=== PATIENT | male | born 1935 | race Caucasian/White ===

== ENCOUNTER → 2017-02-01 | Outpatient (REF) ==
[~2017-02-01] MED LIST: ACIDOPHILUS PO; ALBUTEROL0.09 MG/A1 IH; ALMACONE 360 M360 ML PO; AMITRIPTYLINE H50 M1 PO; AMITRIPTYLINE50 MG PO; AMPICILLIN500 MG PO; BACTRIM DS 8001 TAB PO; CEPHALEXIN500 M1 PO; CLEOCIN; CORDARONE200 MG/TAB PO; DIFLUCAN; DULCOLAX10 MG RC; FENTANYL 25 MCG TP; FERRATE325 MG PO; GENTLE LAXATIVE10 MG RC; LEVAQUIN 250MG250 MG PO; LEVAQUIN 5500 MG/TAB PO; MAALOX PLUS / M30 ML PO; MILK OF MA400 MG/5 M PO; MIRALAX17 GM/DOSE PO; MULTAQ400 MG PO; MULTIPLE VITAMI1 CAP PO; MULTIPLE VITAMI1 TA5 PO; MYLANTA 150 ML150 M1 PO; NEURONTIN300 MG PO; NEURONTIN300 MG/CAP PO; PAXIL 20MG20 MG PO; PEPCID 20MG TAB20 MG PO; PEPCID AC20 M1 PO; PEPCID AC20 MG PO; PERCOCET 325 MG1 TA2 PO; PHENERGAN25 MG RC; PRADAXA75 MG PO; PRILOSEC40 MG PO; ROXANOL20 MG/ML PO; SYNTHROID0.05 MG/TA PO; TYLENOL 325MG325 MG PO; TYLENOL 500MG500 MG PO; XARELTO10 MG PO; [UNRECOGNIZED DRUG - OTHER] PO; [UNRECOGNIZED DRUG - OTHER] PO; bactrim
== END ==
LOC: ZLAB.WCH 08:55
DX: Z01.89 Encounter for other specified special examinations (principal)

== ENCOUNTER → 2018-08-30 | Outpatient (REF) | LOC: ZLAB.WCH 09:42 | DX: Z01.89 Encounter for other specified special examinations (principal) ==

== ENCOUNTER 2021-03-24 16:56 | Inpatient (IN) | payer MEDICARE, OTHER ==
[~2021-03-24] VITALS: Ht 175.3 cm; Wt 58.2 kg
[~2021-03-24 16:56] MED LIST changes: -ASPIRIN 81M81 MG/TA2 PO; -ASPIRIN E.C. 8181 MG PO; -ATIVAN 0.50.5 MG/TAB PO; -BENADRYL25 M2 PO; -CIPRO 500MG TA500 MG PO; -COLACE 100100 MG/CAP PO; -DIGITEK0.25 MG PO; -DOXYCYCLINE HY100 MG PO; -FLAGYL500 MG PO; -LANOXIN 0.120.125 MG PO; -LIPITOR 40MG TA40 MG PO; -MAG-OX 400400 MG/TAB PO; -MIRALAX PA17 GM/Dose PO; -NEURONTIN100 MG/CAP PO; -NORCO 325 MG-51 TAB PO; -ROXANOL 20MG20 MG/ML SL; -TUSSIN DM CLEA120 ML PO; -ZOFRAN 4MG T4 MG/TAB PO; -ZOFRAN ODT4 MG PO
[2021-03-24 18:19] VITALS: BP 92/70; PULSE 107; TEMP 97.2
--- NOTE | 2021-03-24 18:30 | NUR ---
PT ARRIVED TO FLOOR, VERY WIYOT, PAPER AND PEN USED TO COMMUNICATE, PT DENIES CHEST PAIN OR SOB, PACER INTERROGATED, VITALS TAKEN AND RECORDED, TOLD RICHAR MACIEL PT WAS HERE, CALLED RT FOR EKG
--- NOTE | 2021-03-24 19:15 | NUR ---
Received report from Kary. Patient awake on bed. He is hard of hearing. Venegas catheter draining madisyn urine.
[2021-03-24] MEDS ORDERED: ASPIRIN 81M81 MG/TA2 PO (19:42)
[2021-03-24] MEDS ORDERED: LIPITOR 40MG TA40 MG PO (19:42)
[2021-03-24] MEDS ORDERED: BENADRYL25 M2 PO (19:42)
[2021-03-24] MEDS ORDERED: CIPRO 500MG TA500 MG PO (19:43)
[2021-03-24] MEDS ORDERED: LANOXIN 0.120.125 MG PO (19:44)
[2021-03-24] MEDS ORDERED: TUSSIN DM CLEA120 ML PO (19:45)
[2021-03-24] MEDS ORDERED: FLAGYL500 MG PO (19:45)
[2021-03-24 19:46] VITALS: BP 94/64; PULSE 115; TEMP 97.6
[2021-03-24] MEDS ORDERED: ZOFRAN 4MG T4 MG/TAB PO (19:46)
[2021-03-24] MEDS ORDERED: NEURONTIN100 MG/CAP PO (19:48)
--- NOTE | 2021-03-24 20:10 | NUR ---
Patient's DPOA, Ibrahima, came in to give the DPOA form. Informed Xochitl MACIEL so she can update Ibrahima for the plan of care. Placed walker inside his room. Clipboard and paper was on the bedside for communication purposes. Changed his gown to yellow and placed him on high fall risk. His abdomen is distended with wound covered with gauze.
[2021-03-24 21:25] LABS: COLLECTION METHOD CATHETER
[2021-03-24 21:58] LABS: PH 5 (5-8); SQUAMOUS EPITHELIAL None Seen /hpf; URINE APPEARANCE Cloudy; URINE BACTERIA Many /hpf; URINE BILIRUBIN Negative (NEGATIVE); URINE BLOOD 3+ (NEGATIVE); URINE COLOR Amber; URINE GLUCOSE Negative (NEGATIVE); URINE KETONE Trace (NEGATIVE); URINE LEUKOCYTE ESTERASE 1+ (NEGATIVE); URINE NITRATE Negative (NEGATIVE); URINE PROTEIN(semi-quant) 2+ (NEGATIVE); URINE RBC >50 /hpf; URINE UROBILINOGEN Negative (NEGATIVE)
[2021-03-24 23:10] VITALS: BP 87/61; PULSE 107; TEMP 98
[2021-03-24 23:12] VITALS: BP 96/69; PULSE 115
--- NOTE | 2021-03-25 01:18 | NUR ---
Relayed elevated Troponin to Xochitl MACIEL via phone call. Patient denies chest pain. Informed her as well that patient's urine on IFC was a bit bloody. UA result from [facility] shows RBC and Blood as well. She ordered NS at 60ml/hr and have patient on NPO and for echo.
--- NOTE | 2021-03-25 03:06 | NUR ---
Vancomycin Initial Dosing Pharmacy Note Ordering provider: Nino Gandhi MD Indication/duration: Empiric possible UTI and complicated GI hx including MRSA. Relevant comorbidities: HTN, Hx MRSA. LABS: (Outside labs) WBC = 8.3, SCr = 0.9 Recommendation: Will draw troughs and follow levels. Loading dose: 1 grams Maintenance dose: 500 mg every 12 hours Trough goal: 15-20 ug/mL
[2021-03-25 03:24] VITALS: BP 94/62; PULSE 109; TEMP 98.8
--- NOTE | 2021-03-25 05:55 | NUR ---
Patient's troponin continued to trend. He denies chest pain. Venegas catheter draining bloody urine.
[2021-03-25 07:23] LABS: BASO % 0.1 % (0.0-2.0); GRAN # 7.7 (1.4-6.5); GRAN % 79.8 % (42.2-75.2); LYMPH # 1.1 (1.2-3.4); LYMPH % 11.2 % (20.0-51.0); MEAN CELL VOLUME 90 fl (80.0-100.0); MEAN CORPUSCULAR HEMOGLOBIN 28 pg (27.0-31.0); MEAN CORPUSCULAR HGB CONC 31 g/dl (33.0-37.0); MEAN PLATELET VOLUME 10.1 fl (7.4-10.4); MONO # 0.8 (0.1-0.6); MONO % 8.4 % (1.7-9.3); PLATELET COUNT 213 K/mm3 (130-400); RED BLOOD COUNT 3.59 M/mm3 (4.20-5.60); REDCELL DISTRIBUTION WIDTH-CV 16.1 % (11.5-14.5)
[2021-03-25 07:24] LABS: HEMATOCRIT 32.2 % (42.0-52.0)
[2021-03-25 07:30] LABS: ALBUMIN 3.2 gm/dL (3.5-5.0); BILIRUBIN,TOTAL 0.5 mg/dL (0.0-1.0); CALCIUM 8.9 mg/dL (8.4-10.2); CREATININE, serum 0.81 (0.66-1.25); POTASSIUM 3.5 mmol/L (3.4-5.0); TOTAL PROTEIN 6.3 gm/dL (6.4-8.2)
[2021-03-25 07:44] LABS: TROPONIN-I 5.73 ng/mL (0.000-0.035)
[2021-03-25 08:06] VITALS: BP 107/73; PULSE 109; TEMP 98.2
--- NOTE | 2021-03-25 08:17 | NUR ---
NOTIFIED ADAM MACIEL OF CRITICAL TROPONIN LEVEL
--- NOTE | 2021-03-25 08:55 | NUR ---
AFTER PT PUT BACK IN BED AFTER CT IV STARTED TO LEAK, STOPPED USING SITE. 3 NURSES ATTEMPTED IV UNSUCCESSFULLY, DR. COLLAZO NOTIFIED AND ORDER FOR PICC PLACED. IV ANTIBIOTICS DELAYED, ERIC SHERIDAN NOTIFIED. ASSESSMENT PERFORMED, ORAL MEDICATIONS GIVEN, DIET ORDER PLACED VIA PHYSICIAN. PT BOOSTED IN BED AND TRAY SET UP FOR PT. HALFWAY UPDATED ON PT CONDITION AND THEY EDUCATED THAT HE CAN HEAR BETTER OUT OF R EAR.
--- NOTE | 2021-03-25 11:28 | NUR ---
First visit from the clip riveter. Patient was asleep. Diabetes Manager prayed for the patient while standing outside the door.
--- NOTE | 2021-03-25 13:19 | NUR ---
I spoke with Ibrahima Orta by phone as Davi was sleeping earlier this morning. Ibrahima is listed on the DPOA-HC as the alternative agent on page 3 of the form as Radha August is not able or willing to serve as DPOA-HC due to her own health. Ibrahima came to the hospital to meet with Dr Gonsales to discuss the cardiac cath procedure including risks and benefits. Ibrahima reports that up until about two weeks ago pt had been walking with a cane and doing much more than he has been able to now. He progressed quickly from using a cane to walker to wheelchair and now is extremely weak. Pt is a DNR but if something could be done to help improve his level of function without great risk, Ibrahima feels that this would be what Davi would want and during their initial conversation, that is what Davi indicated in my presence. He was also having a PICC line placed just after I left. Davi is able to hear Ibrahima's voice much easier than he can hear me. I did not find Ibrahima after he had spoken with Dr Gonsales.
[2021-03-25 16:25] VITALS: BP 96/63; PULSE 88; TEMP 98.2
--- NOTE | 2021-03-25 17:19 | NUR ---
PT HAD LARGE BM AFTER FLEET ENEMA, MIRALAX AND COLACE GIVEN, IV ANTIBIOTICS INFUSING, PT READJUSTED IN BED, NO OTHER NEEDS
--- NOTE | 2021-03-25 19:02 | NUR ---
Received report from Kary. Patient asleep in bed.
[2021-03-25 19:47] VITALS: BP 89/66; PULSE 56; TEMP 97.8
[2021-03-26 00:20] VITALS: BP 93/58; PULSE 108; TEMP 97.7
--- NOTE | 2021-03-26 00:38 | NUR ---
Changed patient's dressing on abdomen. Noted a foul odor and drainage on one of his wounds. Called Xochitl MACIEL for her to see what the wound looks like. She came in and ordered to have a wound culture. Able to obtain 2 wound cultures for left and right wound of abdomen. He did have a large bowel movement. Cleaned and changed bed sheets, covers and gown. Repositioned patient. Venegas catheter care provided.
[2021-03-26 04:06] VITALS: BP 90/68; PULSE 100; TEMP 97.9
--- NOTE | 2021-03-26 06:18 | NUR ---
Patient had multiple loose stools all night. His bottom starts to have some redness. Bed sheets and gown had been changed multiple times. No blood seen in the leonard catheter, it was tea colored.
[2021-03-26 06:45] LABS: BASO % 0.1 % (0.0-2.0); GRAN # 7.5 (1.4-6.5); GRAN % 74.5 % (42.2-75.2); LYMPH # 1.4 (1.2-3.4); LYMPH % 13.5 % (20.0-51.0); MEAN CELL VOLUME 91 fl (80.0-100.0); MEAN CORPUSCULAR HGB CONC 31 g/dl (33.0-37.0); MEAN PLATELET VOLUME 10.9 fl (7.4-10.4); MONO # 1.2 (0.1-0.6); MONO % 11.5 % (1.7-9.3); PLATELET COUNT 182 K/mm3 (130-400); RED BLOOD COUNT 2.95 M/mm3 (4.20-5.60); REDCELL DISTRIBUTION WIDTH-CV 16.5 % (11.5-14.5)
[2021-03-26 06:50] LABS: HEMATOCRIT 26.9 % (42.0-52.0); HEMOGLOBIN 8.3 g/dl (13.5-18.0); MEAN CORPUSCULAR HEMOGLOBIN 28 pg (27.0-31.0)
[2021-03-26 06:52] LABS: C-REACTIVE PROTEIN 2.9 mg/dL (0.0-0.9); CALCIUM 7.8 mg/dL (8.4-10.2); CREATININE, serum 0.72 (0.66-1.25); MAGNESIUM 1.5 mg/dL (1.6-2.3); POTASSIUM 3.2 mmol/L (3.4-5.0)
[2021-03-26 07:12] LABS: TROPONIN-I 3.64 ng/mL (0.000-0.035)
[2021-03-26 07:46] VITALS: BP 98/65; PULSE 97; TEMP 97.4
--- NOTE | 2021-03-26 09:20 | NUR ---
PT PLEASANT, AOX4, RAMPART, USED CLIPBOARD/PAPER TO COMMUNICATE, HELD MIRALAX DUE TO DIARRHEA, ALL OTHER MEDICATIONS GIVEN, PT DENIES CHEST PAIN OR ANY OTHER FORM OF PAIN, ATE BREAKFAST, NO OTHER NEEDS AT THIS TIME.
[2021-03-26] MEDS ORDERED: NORCO 325 MG-51 TAB PO ×2 (10:00)
[2021-03-26 11:19] VITALS: BP 89/59; PULSE 103; TEMP 97.6
--- NOTE | 2021-03-26 14:44 | NUR ---
Audio Engineer contacted the patient's nephew/DPOA-HC, Ibrahima #[phone] to complete intake. The patient lives in [place] at [facility] in long-term care. The patient has a wheelchair, walker, cane, and knee brace. Until recently the patient was independent with ADLs, but is now needing assistance. The patient's PCP is Dr. Brigette Fabian and patient receives medications from [facility]. The patient has advanced directives in the EMR but they outdated. Ibrahima provided an updated DPOA-HC, it was placed in the patient's chart. The plan is for the patient to return to [facility] in [place]. SW contacted Michelle with [facility] to provided clinical updates. Michelle reports they can accept the patient on 03/27. Michelle would like SNF orders since PT is recommending SNF. She will contact this SW with transportation time. *Discharge disposition: [facility] in [place]
[2021-03-26 16:55] VITALS: BP 103/63; PULSE 98; TEMP 97.4
--- NOTE | 2021-03-26 17:54 | NUR ---
pt drowsy after heart cath, band still inflated to 11ml, post op vitals being taken, medications given as perscribed, pt on oxymask 2l while sleeping. sig other at bedside, no other needs
--- NOTE | 2021-03-26 18:16 | NUR ---
pt plan to dc anastacio, covid test obtained, iv antibiotics infusing, urine dark yellow, pt ambler, no other needs at this time.
[2021-03-26 20:12] VITALS: BP 89/67; PULSE 73; TEMP 97.5
[2021-03-27 00:13] VITALS: BP 100/57; PULSE 108; TEMP 97.6
--- NOTE | 2021-03-27 05:17 | NUR ---
RESTED THOUGH THE NIGHT WITHOUT INCIDENT. NEEDS MET.
[2021-03-27 07:32] LABS: CALCIUM 8.4 mg/dL (8.4-10.2); CREATININE, serum 0.85 (0.66-1.25); MAGNESIUM 2.1 mg/dL (1.6-2.3); POTASSIUM 4.3 mmol/L (3.4-5.0)
[2021-03-27 08:00] VITALS: BP 101/69; PULSE 105; TEMP 98.2
--- NOTE | 2021-03-27 08:08 | NUR ---
PT PLEASANT, QAGAN TAYAGUNGIN, DENIES CHEST PAIN, ALVAREZ DRAINING TEA COLORED URINE WITH SEDIMENT, PICC PATENT WITH GOOD BLOOD RETURN, IV ANTIBIOTICS INFUSING, MEDICATIONS GIVEN, ASSESSMENT PERFORMED, PT BOOSTED IN BED AND SAT UP FOR BREAKFAST, NO OTHER NEEDS AT THIS TIME.
[2021-03-27] MEDS ORDERED: ASPIRIN E.C. 8181 MG PO (08:46)
[2021-03-27] MEDS ORDERED: MAG-OX 400400 MG/TAB PO (08:46)
[2021-03-27] MEDS ORDERED: MIRALAX PA17 GM/Dose PO (08:47)
[2021-03-27] MEDS ORDERED: COLACE 100100 MG/CAP PO (08:47)
[2021-03-27] MEDS ORDERED: DOXYCYCLINE HY100 MG PO (08:49)
--- NOTE | 2021-03-27 09:00 | NUR ---
ARVIN REYES NOTIFIED OF NEED FOR PICC LINE REMOVAL
[2021-03-27 10:00] VITALS: BP 101/69; PULSE 105; TEMP 98.2
--- NOTE | 2021-03-27 10:48 | NUR ---
Pt is to return to [facility] with skilled care orders at 1100. It has been his and Ibrahima's decision to keep trying to get better/recover from this event.
--- NOTE | 2021-03-27 10:50 | NUR ---
The patient to tentatively discharge today, 03/27 to [facility] for SNF then transition back to LTC. The patient to be picked up at 11:00 am. The team and the patient's nephew, Ibrahima were in agreeance. CRYSTAL presented the IM form to Ibrahima he verbalized understanding. CRYSTAL signed form on his behalf and provided a copy to the patient, original placed in the chart. CRYSTAL sent discharge orders and discharge summary. There are no additional needs.
--- NOTE | 2021-03-27 10:53 | NUR ---
ERIC SHERIDAN REMOVED PICC LINE. OLIVIA STANLEY HELPING PT GET READY FOR DISCHARGE, [facility] HERE WITH WHEELCHAIR TO TRANSFER PT BACK TO FACILITY, NO OTHER NEEDS
--- NOTE | 2021-03-27 11:49 | NUR ---
PT ESCORTED OUT VIA WHEELCHAIR
== END 2021-03-27 11:49 | DRG 871 ==
LOC: MEDICAL 17:53
PROVIDERS: Student in an Organized Health Care Education/Training Program; ADMIT Internal Medicine
PROC: 02HV33Z Insertion of Infusion Device into Superior Vena Cava, Percutaneous Approach (ICD-10-PCS; principal; 2021-03-25)
DX: A41.9 Sepsis, unspecified organism (principal); I21.4 Non-ST elevation (NSTEMI) myocardial infarction; I50.31 Acute diastolic (congestive) heart failure; N39.0 Urinary tract infection, site not specified; I48.20 Chronic atrial fibrillation, unspecified; K56.609 Unspecified intestinal obstruction, unspecified as to partial versus complete obstruction; K56.7 Ileus, unspecified; Z66 Do not resuscitate; I25.10 Atherosclerotic heart disease of native coronary artery without angina pectoris; K21.9 Gastro-esophageal reflux disease without esophagitis; K59.09 Other constipation; I11.0 Hypertensive heart disease with heart failure; G62.9 Polyneuropathy, unspecified; R53.81 Other malaise; D01.5 Carcinoma in situ of liver, gallbladder and bile ducts; E86.0 Dehydration; I49.5 Sick sinus syndrome; R31.0 Gross hematuria; S31.109A Unspecified open wound of abdominal wall, unspecified quadrant without penetration into peritoneal cavity, initial encounter; Z20.822 Contact with and (suspected) exposure to COVID-19; D50.9 Iron deficiency anemia, unspecified; G89.29 Other chronic pain; Z95.0 Presence of cardiac pacemaker; Z85.72 Personal history of non-Hodgkin lymphomas; Z85.038 Personal history of other malignant neoplasm of large intestine; Z87.891 Personal history of nicotine dependence; Z79.82 Long term (current) use of aspirin
CPT/HCPCS: 99223-AI; 99232-AI; 99233-AI; 99239; C1751; J1650; J2543; J3370; J3475; J7030; J7050; Q9967

== ENCOUNTER → 2021-03-24 | Outpatient (REF) ==
[~2021-03-24] MED LIST changes: +ASPIRIN 81M81 MG/TA2 PO; +ASPIRIN E.C. 8181 MG PO; +ATIVAN 0.50.5 MG/TAB PO; +BENADRYL25 M2 PO; +CIPRO 500MG TA500 MG PO; +COLACE 100100 MG/CAP PO; +DIGITEK0.25 MG PO; +DOXYCYCLINE HY100 MG PO; +FLAGYL500 MG PO; +LANOXIN 0.120.125 MG PO; +LIPITOR 40MG TA40 MG PO; +MAG-OX 400400 MG/TAB PO; +MIRALAX PA17 GM/Dose PO; +NEURONTIN100 MG/CAP PO; +NORCO 325 MG-51 TAB PO; +ROXANOL 20MG20 MG/ML SL; +TUSSIN DM CLEA120 ML PO; +ZOFRAN 4MG T4 MG/TAB PO; +ZOFRAN ODT4 MG PO
== END ==
LOC: ZLAB.WCH 18:05
DX: Z01.89 Encounter for other specified special examinations (principal)

== ENCOUNTER 2021-03-29 04:13 | Observation (INO) | payer MEDICARE, OTHER ==
[~2021-03-29] VITALS: Ht 170.2 cm; Wt 61.4 kg
[~2021-03-29 04:13] MED LIST changes: +ASPIRIN 81M81 MG/TA2 PO; +ASPIRIN E.C. 8181 MG PO; +BENADRYL25 M2 PO; +CIPRO 500MG TA500 MG PO; +COLACE 100100 MG/CAP PO; +DOXYCYCLINE HY100 MG PO; +FLAGYL500 MG PO; +LANOXIN 0.120.125 MG PO; +LIPITOR 40MG TA40 MG PO; +MAG-OX 400400 MG/TAB PO; +MIRALAX PA17 GM/Dose PO; +NEURONTIN100 MG/CAP PO; +NORCO 325 MG-51 TAB PO; +TUSSIN DM CLEA120 ML PO; +ZOFRAN 4MG T4 MG/TAB PO
[2021-03-29 04:51] LABS: BASO % 0.1 % (0.0-2.0); EOS % 0.1 % (0-4.0); GRAN # 8.8 (1.4-6.5); GRAN % 76.4 % (42.2-75.2); HEMATOCRIT 37.3 % (42.0-52.0); LYMPH # 1.7 (1.2-3.4); LYMPH % 14.6 % (20.0-51.0); MEAN CELL VOLUME 91 fl (80.0-100.0); MEAN CORPUSCULAR HGB CONC 30 g/dl (33.0-37.0); MEAN PLATELET VOLUME 10.5 fl (7.4-10.4); MONO % 8.2 % (1.7-9.3); RED BLOOD COUNT 4.08 M/mm3 (4.20-5.60); REDCELL DISTRIBUTION WIDTH-CV 16.8 % (11.5-14.5)
[2021-03-29 04:56] LABS: HEMOGLOBIN 11.1 g/dl (13.5-18.0); MEAN CORPUSCULAR HEMOGLOBIN 27 pg (27.0-31.0); PLATELET COUNT 304 K/mm3 (130-400)
[2021-03-29 04:58] LABS: INR 1.2 (0.8-3.0); PROTHROMBIN TIME 13.7 SECONDS (9.7-12.8)
[2021-03-29 05:01] LABS: PARTIAL THROMBOPLASTIN TIME 28.6 SECONDS (26.0-37.0)
[2021-03-29 05:07] LABS: ALBUMIN 3.3 gm/dL (3.5-5.0); BILIRUBIN,TOTAL 0.3 mg/dL (0.0-1.0); CALCIUM 8.9 mg/dL (8.4-10.2); CREATININE, serum 0.95 (0.66-1.25); POTASSIUM 4.8 mmol/L (3.4-5.0); TOTAL PROTEIN 6.7 gm/dL (6.4-8.2)
[2021-03-29 05:22] LABS: TROPONIN-I 0.981 ng/mL (0.000-0.035)
[2021-03-29 13:15] VITALS: BP 110/62; PULSE 95; TEMP 97.8
--- NOTE | 2021-03-29 17:17 | NUR ---
PT TRANSPORTED TO MEDICAL FLOOR VIA ED STAFF AT 1315, PT A/0X4, PT IS VERY HARD OF HEARING, THIS NURSE IS CURRENTLY COMMUNICATING WITH HIM VIA BOARD. VSS, 02 ROOM AIR.PT WAS WET AND INCONTINENT UPON ARRIVAL, THIS NURSE AND AIDE PLACED EXTERNAL CATHETER , PT TOLERATING IT WELL. PT DENIES PAIN/N/V/D,CHEST TIGHTNESS. TELE MONITOR ON. THIS NURSE WILL REVIEW ORDERS AND ADMINISTER ANY MEDICATION ORDERED. PT EXPRESSES NO ADDITIONAL NEEDS AT THIS TIME. CALL LIGHT WITHIN REACH.
--- NOTE | 2021-03-29 19:17 | NUR ---
PT A/OX4, VSS, 02 ROOM AIR, THIS NURSE CALLED LUCILA, HIS NURSE FROM [facility] TO CONFIRM DOXYCYCLINE ALLERGY, LUCILA RELAYS [facility] PHARMACIST HAS CLEARED THE USE OF DOXYCLINE FOR PT, PT WAS AT THIS HOSPITAL RECENTLY AND WAS ABLE TO TOLERATE ANTIBIOTIC WITHOUT REACTIONS. THIS NURSE RELAYED THIS INFORMATION TO BODY TECHNICIAN/PAINTER. PT EXPRESES NO ADDITIONAL NEEDS AT THIS TIME. CALL LIGHT WITHIN REACH.
[2021-03-29 20:23] VITALS: BP 100/69; PULSE 94; TEMP 98.1
--- NOTE | 2021-03-29 21:41 | NUR ---
PATIENT RECEIVED IN BED A+OX4, VERY COWLITZ. DENIES CHEST PAIN OR SOB. DENIES PAIN, NO NAUSEA/VOMITING. CONDOME CATHETER IN PLACE FOR INCONTINENCE. ABDOMINAL DRESSING IN PLACE C/D/I. CALL LIGHT WITHIN REACH, BED ALARM ON. NO EVENT AT THIS TIME. WILL CONTINUE TO MONITOR.
[2021-03-30] VITALS (7 sets, daily range): BP systolic 90–120; BP diastolic 58–88; PULSE 08–111; TEMP 97.3–98.1
--- NOTE | 2021-03-30 03:05 | NUR ---
PATIENT RESTING IN BED IN DISTRESS. DENIES CHEST PAIN. ABDOMINAL WOUND WITH PUS, NO FOWEL SMELL. DRESSING DONE. WILL CONTINUE TO MONITOR.
--- NOTE | 2021-03-30 06:59 | NUR ---
PT SITTING UP AWAKE IN BED, NO C/O AT THIS TIME.
--- NOTE | 2021-03-30 09:22 | NUR ---
PT ANDRZEJ, AOX4, REPORTS CHEST PAIN 2/10 ON R SIDE AND DESCRIBED IT AN ACHE. PT INC OF STOOL, BRIEF CHANGED AND PERICARE PROVIDED, MEDICATIONS GIVEN WITH WATER, PT REPOSITIONED IN BED, NO OTHER NEEDS AT THIS TIME.
[2021-03-30 10:12] LABS: BASO % 0.2 % (0.0-2.0); GRAN # 9.4 (1.4-6.5); GRAN % 82.1 % (42.2-75.2); HEMOGLOBIN 10.6 g/dl (13.5-18.0); LYMPH # 1.1 (1.2-3.4); LYMPH % 9.1 % (20.0-51.0); MEAN CELL VOLUME 93 fl (80.0-100.0); MEAN CORPUSCULAR HEMOGLOBIN 28 pg (27.0-31.0); MEAN CORPUSCULAR HGB CONC 31 g/dl (33.0-37.0); MEAN PLATELET VOLUME 10.4 fl (7.4-10.4); MONO # 0.9 (0.1-0.6); MONO % 8.1 % (1.7-9.3); PLATELET COUNT 273 K/mm3 (130-400); RED BLOOD COUNT 3.75 M/mm3 (4.20-5.60); REDCELL DISTRIBUTION WIDTH-CV 16.8 % (11.5-14.5)
[2021-03-30 10:14] LABS: HEMATOCRIT 34.7 % (42.0-52.0)
[2021-03-30 10:23] LABS: CALCIUM 9.1 mg/dL (8.4-10.2); CREATININE, serum 0.89 (0.66-1.25); POTASSIUM 4.7 mmol/L (3.4-5.0)
[2021-03-30 11:09] LABS: TROPONIN-I 0.706 ng/mL (0.000-0.035)
--- NOTE | 2021-03-30 11:55 | NUR ---
DR. DURON WANTED TO GIVE ADDITIONAL DOSE OF DIG AT 1500
--- NOTE | 2021-03-30 17:51 | NUR ---
PT TUNICA-BILOXI, DENIES PAIN, REPSITIONED DURING THE DAY, INC OF URINE AND STOOL, NO OTHER NEEDS
--- NOTE | 2021-03-30 19:10 | NUR ---
Received report from Kary. Patient awake in bed. He is on room air. Denies needs at this time.
[2021-03-31 03:47] VITALS: BP 95/57; PULSE 71; TEMP 97.6
--- NOTE | 2021-03-31 06:08 | NUR ---
Patient had uneventful night. He denies chest pain. Heart rate has been stable at 70's to 80's.
[2021-03-31 08:00] VITALS: BP 116/69; PULSE 97; TEMP 97.7
--- NOTE | 2021-03-31 08:05 | NUR ---
Pt awake upon entry, AOx4, able to follow commands. Pt denies pain. Mild edema 1+ noted in bilateral feet. Lung sounds clear, bowel sounds audible, S1,S2 sounds heard upon auscultation. Pt hard of hearing, clipboard utilized for communication.
--- NOTE | 2021-03-31 09:15 | NUR ---
Removed doxycycline as pt allergy. Confirmed with patient that the medication did not affect them. Verbal confirmation received.
--- NOTE | 2021-03-31 12:16 | NUR ---
Plan is to return to [facility] Patient is hard of hearing, right ear is better but still very hard to hear. Patient has a board to use to write on. Patient gave permission to call Nephetn Orta for assessment. . CRYSTAL made contact with Noemí and he reports that the patient 3 weeks ago was more mobile than he is today. [facility] went [facility] Noemí reports that the PCP is Dr. Fabian and Dr. Clarke. Te patient is reported to use [facility] and has a pacemaker that was put in approx 8 years ago. Patient is reports to not need any oxygen. Spencerdeepti reports that he was informed that he would recieve information from palliative care. Gave noemí information on care support. Will follow for further care supports.
[2021-03-31 12:47] VITALS: BP 107/67; PULSE 92; TEMP 98
--- NOTE | 2021-03-31 13:13 | NUR ---
Follow-up visit; Patient declines prayer today. Search Engine Optimization Analyst offers God's blessings.
[2021-03-31 15:30] VITALS: BP 95/62; PULSE 98; TEMP 98.1
--- NOTE | 2021-03-31 15:36 | NUR ---
Dressing changed at this time. 5 incision sites, the left lower site is oozing, green, purulent drainage. The other sites are well approximated. No other signs of redness, swelling, warmth noted at this time. New dressing consists of guaze pads and covered with an abdominal pad and paper tape.
--- NOTE | 2021-03-31 16:39 | NUR ---
Pt was AOx4, able to follow commands and express needs during shift. Pt remained bedfast. Erythema noted on coccyx, frequent repositioning provided along with pericare. Pt denied pain during shift. Pt's abdominal dressing changed during shift, oozing, purulent drainage noted from left lower incision site. Pt had one visitor during shift. Pt remained free from injury for duration of shift.
--- NOTE | 2021-03-31 18:57 | NUR ---
Received report from Jaspal. Patient is awake, watching TV.
[2021-03-31 19:47] VITALS: BP 104/74; PULSE 82; TEMP 98.3
--- NOTE | 2021-03-31 21:19 | NUR ---
Patient had a large bowel movement. Changed his diaper, bedsheets and gown. He's been coughing with phlegm. Encouraged him to spit the phlegm if he could.
--- NOTE | 2021-03-31 23:13 | NUR ---
Patient's both INT are leaking. Removed INT and reinsert G22 on right AC.
[2021-03-31 23:47] VITALS: BP 101/58; PULSE 81; TEMP 98.2
[2021-04-01 02:58] VITALS: BP 99/54; PULSE 78; TEMP 98.4
--- NOTE | 2021-04-01 07:57 | NUR ---
Pt's feet were cooler bilaterally than legs, cap refill <3 seconds all extremities. No signs of breakdown at this time. SCDs removed and replaced. 1+ Pitting edema in bilateral lower extremities. Pt denies pain at this time.
[2021-04-01 08:14] VITALS: BP 113/75; PULSE 82; TEMP 98.1
--- NOTE | 2021-04-01 11:19 | NUR ---
CRYSTAL attended clinical rounds. The patient decided to pursue comfort measures yesterday. The hospitalist would like to confirm goals of care and d/c plan with the patient's DPOA-HC/nephew, Ibrahima. CRYSTAL attempted to contact Ibrahima. CRYSTAL left him a voicemail. CRYSTAL updated Michelle at [facility]. Michelle reports that they are able to accept the patient back on hospice and that they can talk to the patient and Ibrahima about the different hospice agencies and get the hospice agency set up on their end. RCYSTAL staffed with the patient's RN. The RN reports that the patient would be able to transport, via wheelchair. The patient's older sister and another family member arrived to the hospital. CRYSTAL introduced oneself. His sister confirmed the plan for comfort care and returning back to [facility]. She reports that Ibrahima is a professor at [employer] and is with students right now, but should be available soon. CRYSTAL then contacted Ibrahima again. Ibrahima answered and confirmed that the plan is for the patient to return back to [facility] on hospice. He did not have a preference for a hospice agency at this time. CRYSTAL informed him that Michelle at [facility] planned on contacting him to discuss the different agencies. CRYSTAL transferred the call to the hospitalist and the hospitalist confirmed goals of care with Ibrahima. CRYSTAL updated Michelle at [facility]. The patient is to discharge today, 04/01, back to [facility] on hospice. Transportation was scheduled around [id number], via [facility]. CRYSTAL attempted to inform Ibrahima of the transport time. CRYSTAL left him a voicemail. CRYSTAL informed the patient's sister and RN of the time. No additional needs at this time.
--- NOTE | 2021-04-01 11:24 | NUR ---
I spoke with Irbahima Orta by phone who reports that yes they are planning on Davi Grimes going back to [facility] on hospice services. [facility] and let us know. He had also spoken with Patti Andrews, social work administrator, and also verified plan for return to [facility] on hospice services. He will return as soon as [facility] can take him back and hospice will start following that.
[2021-04-01] MEDS ORDERED: DIGITEK0.25 MG PO (11:35)
[2021-04-01] MEDS ORDERED: ROXANOL 20MG20 MG/ML SL (11:37)
[2021-04-01] MEDS ORDERED: ATIVAN 0.50.5 MG/TAB PO (11:38)
[2021-04-01] MEDS ORDERED: ZOFRAN ODT4 MG PO (11:39)
[2021-04-01 12:06] VITALS: BP 105/51; PULSE 87; TEMP 99.7
[2021-04-01 12:13] VITALS: BP 105/51; PULSE 87; TEMP 99.7
--- NOTE | 2021-04-01 14:04 | NUR ---
Report to David Manley given. IV and tele removed. Pt left with transpor via wheelchair. Pt received discharge packet to take to facility.
== END 2021-04-01 14:07 ==
LOC: COL.ER 04:13 → MEDICAL 09:34 → COL.ER 09:34 → MEDICAL 09:34
PROVIDERS: Emergency Medicine; ADMIT Internal Medicine
DX: I48.20 Chronic atrial fibrillation, unspecified (principal); R79.89 Other specified abnormal findings of blood chemistry; I25.5 Ischemic cardiomyopathy; I11.0 Hypertensive heart disease with heart failure; I50.23 Acute on chronic systolic (congestive) heart failure; J91.8 Pleural effusion in other conditions classified elsewhere; K56.7 Ileus, unspecified; K59.09 Other constipation; T81.31XA Disruption of external operation (surgical) wound, not elsewhere classified, initial encounter; B95.62 Methicillin resistant Staphylococcus aureus infection as the cause of diseases classified elsewhere; B96.4 Proteus (mirabilis) (morganii) as the cause of diseases classified elsewhere; I95.9 Hypotension, unspecified; R53.1 Weakness; D50.9 Iron deficiency anemia, unspecified; G62.89 Other specified polyneuropathies; Z66 Do not resuscitate; D01.5 Carcinoma in situ of liver, gallbladder and bile ducts; C85.90 Non-Hodgkin lymphoma, unspecified, unspecified site; C85.10 Unspecified B-cell lymphoma, unspecified site; Z79.899 Other long term (current) drug therapy; Z95.0 Presence of cardiac pacemaker; Z79.82 Long term (current) use of aspirin
CPT/HCPCS: 99232-AI; 99238; G0378; J0696; J1160; J1940